=== PATIENT | female | born 1970 | race Two or more races ===

== ENCOUNTER 2024-10-23 10:34 | Inpatient (IN) ==
[2024-10-23] MEDS ORDERED: TUSSIONEX PENNKINETIC SUSP PO PRN (12:02)
[2024-10-23] MEDS ORDERED: NS 1/2 1,000 ML IV 1,000 ML IV ONE (12:14)
[2024-10-23] MEDS: NS 1/2 1,000 ML IV 1,000 ML IV SCH (12:26)
[2024-10-23] MEDS: ROBITUSSIN DM PO SCH (12:26)
[2024-10-23 12:38] LABS: BASOPHILS # (AUTO) 0.1 X10^3/uL (0.0-0.1); BASOPHILS % (AUTO) 0.6 % (0.2-1.0); EOSINOPHILS % (AUTO) 0.2 % (0.9-2.9); HEMATOCRIT 44.8 % (36.0-47.0); HEMOGLOBIN 14.5 g/dL (12.0-16.0); LYMPHOCYTES # (AUTO) 1.6 X10^3/uL (1.3-2.9); LYMPHOCYTES % (AUTO) 18.1 % (21.0-51.0); MEAN CORPUSCULAR HGB CONC 32.3 g/dL (33.0-35.0); MEAN CORPUSCULAR VOLUME 96.1 fL (80.0-100.0); MEAN PLATELET VOLUME 7.9 fL (7.4-11.0); MONOCYTES # (AUTO) 0.6 x10^3/uL (0.3-0.8); MONOCYTES % (AUTO) 7.1 % (0.0-13.0); NEUTROPHILS # (AUTO) 6.4 x10^3/uL (2.2-4.8); PLATELET COUNT 275 X10^3/uL (150.0-450.0); RED BLOOD COUNT 4.67 X10^6/uL (3.5-5.4); RED CELL DISTRIBUTION WIDTH 16.6 % (11.6-16.5); WHITE BLOOD COUNT 8.7 X10^3/uL (3.6-10.0)
[2024-10-23 13:07] LABS: ALANINE AMINOTRANSFERASE 13 Units/L (12-78); ALBUMIN 2.8 g/dL (3.4-5.0); ALKALINE PHOSPHATASE 130 Units/L (46-116); ASPARTATE AMINO TRANSFERASE 13 Units/L (15-37); BLOOD UREA NITROGEN 22 mg/dL (7-18); CALCIUM 8.6 mg/dL (8.5-10.1); CARBON DIOXIDE 34.4 mmol/L (21-32); CHLORIDE 100 mmol/L (98-107); COR CA(FOR HYPOALB) 9.6 mg/dL (8.5-10.1); CREATININE 0.92 mg/dL (0.55-1.02); GLUCOSE 95 mg/dL (65-99); POTASSIUM 4.3 mmol/L (3.5-5.1); SODIUM 138 mmol/L (136-145); TOTAL PROTEIN 6.8 g/dL (6.4-8.2); eGFR NON BLACK RACES > 60 (>60)
[2024-10-23 13:20] LABS: ABG BASE EXCESS 4.5 mmol/L (-2.0-2.0)
[2024-10-23 13:21] LABS: ABG ALLEN TEST POS; ABG HCO3 31.8 mmol/L (22-26)
--- NOTE | 2024-10-23 13:54 | EKG ---
Test Reason : PNEUMONIA Blood Pressure : */* mmHG Vent. Rate : 88 BPM Atrial Rate : 88 BPM P-R Int : 134 ms QRS Dur : 128 ms QT Int : 376 ms P-R-T Axes : 29 66 185 degrees QTc Int : 454 ms Normal sinus rhythm Nonspecific intraventricular block T wave abnormality, consider inferolateral ischemia Abnormal ECG No previous ECGs available Confirmed by Juve Watts MD ([id number]) on 10/24/2024 7:37:02 AM Referred By: Confirmed By: Juve Watts MD
--- NOTE | 2024-10-23 14:41 | RAD ---
EXAM:CHEST, 1 VIEWHISTORY:PNEUMONIA;COMPARISON:No relevant prior studies were available for comparison at the time of interpretation.TECHNIQUE:CHEST, 1 VIEWFINDINGS:Chest:Lines and tubes: NoneMediastinum: Cardiomegaly.Pulmonary vessels: Pulmonary vasculature is prominent.Lung espinal: No suspicious airspace opacity.Pleura: No effusion. No pneumothorax.Bones and soft tissues: No acute osseous or soft tissue abnormality.IMPRESSION:1. No acute cardiopulmonary abnormalityTHIS IS AN ELECTRONICALLY VERIFIED FINAL REPORT10/23/2024 2:37 PM - Electronically signed by Rory Maldonado MD
[2024-10-23] MEDS: NICOTINE PATCH TD SCH (16:00)
[2024-10-23] MEDS: DUONEB 0.5 MG/3 MG (3 mL) NEB SCH (16:48)
--- NOTE | 2024-10-23 17:24 | DR.H&P ---
H&P History & Physical for Day of: H&P Date: 10/23/24 Chief Complaint Chief Complaint: SOB, CCC, WEAKNESS History of Present Illness History of Present Illness: PT IS 54 HF, DIRECT ADMIT FROM DR SPIVEY OFFICE WITH SOB, HYPOXIA, CHEST CONGESTION AND WEAKNESS. PT REPORTS SHE WAS SEEN IN ER IN [place] ON 10/12. PT HAS NEEN TAKING PRESCIPTION MEDICATION. PT HAS PMH OF COPD, HTN, CHF AND OA. PTS O2 SAT 88% IN OFFICE. PT ADMITTED FOR TREATMENT OF ACUTE ILLNESS. Past Medical History Past Medical History: Coronary Artery Disease, Depression, Hypertension and NE Past Surgical History Surgical History: and Cholecystectomy Family History Family Medical History: Diabetes Mellitus, Cancer, NE, Coronary Artery Disease, Heart Failure, Sudden Cardiac and Hypertension Social History Does patient currently use any type of tobacco product: Yes Have you used tobacco products in the last 12 months: No Type of Tobacco Use: Cigarettes Alcohol Use: None Drug Use: None Medications Home Medications: Home Medications Medication Instructions Recorded Confirmed Type lisinopril 5 mg tablet 5 mg PO DAILY 03/06/20 10/23/24 History metoprolol tartrate 25 mg tablet 25 mg PO BID 03/06/20 10/23/24 History amitriptyline 10 mg tablet 10 mg PO QHS 01/27/22 10/23/24 History furosemide 20 mg tablet 20 mg PO DAILY PRN 01/27/22 10/23/24 History atorvastatin 20 mg tablet 20 mg PO QHS 04/27/24 10/23/24 History omeprazole 40 mg capsule,delayed 40 mg PO QDAY 04/27/24 10/23/24 History release potassium chloride 10 mEq 10 meq PO QDAY PRN 04/27/24 10/23/24 History tablet,extended release ropinirole 1 mg tablet 1 mg PO QDAY 04/27/24 10/23/24 History Allergies Allergies Allergy/AdvReac Type Severity Reaction Status Date / Time No Known Drug Allergies Allergy Verified 04/27/24 11:17 Labs 10/23/24 12:16 10/23/24 12:16 Labs: Laboratory WBC 8.7 X10^3/uL (3.6-10.0) 10/23/24 12:16 RBC 4.67 X10^6/uL (3.5-5.4) 10/23/24 12:16 Hgb 14.5 g/dL (12.0-16.0) 10/23/24 12:16 Hct 44.8 % (36.0-47.0) 10/23/24 12:16 MCV 96.1 fL (80.0-100.0) 10/23/24 12:16 MCH 31.0 pg (27.0-34.0) 10/23/24 12:16 MCHC 32.3 g/dL (33.0-35.0) L 10/23/24 12:16 RDW 16.6 % (11.6-16.5) H 10/23/24 12:16 Plt Count 275 X10^3/uL (150.0-450.0) 10/23/24 12:16 MPV 7.9 fL (7.4-11.0) 10/23/24 12:16 Neut % (Auto) 74.0 % (42.0-75.0) 10/23/24 12:16 Lymph % (Auto) 18.1 % (21.0-51.0) L 10/23/24 12:16 [place] % (Auto) 7.1 % (0.0-13.0) 10/23/24 12:16 Eos % (Auto) 0.2 % (0.9-2.9) L 10/23/24 12:16 Baso % (Auto) 0.6 % (0.2-1.0) 10/23/24 12:16 Neut # (Auto) 6.4 x10^3/uL (2.2-4.8) H 10/23/24 12:16 Lymph # (Auto) 1.6 X10^3/uL (1.3-2.9) 10/23/24 12:16 [place] # (Auto) 0.6 x10^3/uL (0.3-0.8) 10/23/24 12:16 Eos # (Auto) 0.0 x10^3/uL (0.0-0.2) 10/23/24 12:16 Baso # (Auto) 0.1 X10^3/uL (0.0-0.1) 10/23/24 12:16 Absolute Nucleated RBC 0.6 /100WBC 10/23/24 12:16 Sample Site Rrad 10/23/24 13:07 ABG pH 7.340 (7.35-7.45) L 10/23/24 13:07 ABG pCO2 59.0 mmHg (35.0-45.0) H* 10/23/24 13:07 ABG pO2 51.0 mmHg (80.0-100.0) L 10/23/24 13:07 ABG HCO3 31.8 mmol/L (22-26) H* 10/23/24 13:07 ABG O2 Saturation 83.0 % (90-100) L* 10/23/24 13:07 ABG Base Excess 4.5 mmol/L (-2.0-2.0) H 10/23/24 13:07 Lorenzo Test Pos 10/23/24 13:07 A-a Gradient 25.0 mmHg 10/23/24 13:07 FiO2 21.0 10/23/24 13:07 Blood Gas Comments Pt fede well elj cdn 10/23/24 13:07 Sodium 138 mmol/L (136-145) 10/23/24 12:16 Corrected Sodium TNP 10/23/24 12:16 Potassium 4.3 mmol/L (3.5-5.1) 10/23/24 12:16 Chloride 100 mmol/L (98-107) 10/23/24 12:16 Carbon Dioxide 34.4 mmol/L (21-32) H 10/23/24 12:16 BUN 22 mg/dL (7-18) H 10/23/24 12:16 Creatinine 0.92 mg/dL (0.55-1.02) 10/23/24 12:16 Est GFR (MDRD) Af Amer > 60 (>60) 10/23/24 12:16 Est GFR (MDRD) Non-Af > 60 (>60) 10/23/24 12:16 Glucose 95 mg/dL (65-99) 10/23/24 12:16 Calcium 8.6 mg/dL (8.5-10.1) 10/23/24 12:16 Corrected Calcium 9.6 mg/dL (8.5-10.1) 10/23/24 12:16 Total Bilirubin 0.50 mg/dL (0.2-1.0) 10/23/24 12:16 AST 13 Units/L (15-37) L 10/23/24 12:16 ALT 13 Units/L (12-78) 10/23/24 12:16 Alkaline Phosphatase 130 Units/L (46-116) H 10/23/24 12:16 Troponin I High Sens 22.1 ng/L (4.0-60.0) 10/23/24 12:16 Total Protein 6.8 g/dL (6.4-8.2) 10/23/24 12:16 Albumin 2.8 g/dL (3.4-5.0) L 10/23/24 12:16 Globulin 4.0 g/dL (2.5-4.5) 10/23/24 12:16 Albumin/Globulin Ratio 0.7 Ratio (1.1-2.1) L 10/23/24 12:16 Review of Systems Constitutional: Weakness Eyes: No Symptoms Reported ENT: No Symptoms Reported Respiratory: Cough, Shortness of Breath, SOB with Excertion and Sputum Cardiovascular: Edema Gastrointestinal: No Symptoms Reported Genitourinary: Frequency Musculoskeletal: Back Pain and Leg Pain Skin: No Symptoms Reported Neurological: Weakness Physical Exam Vital Signs: Vital Signs Temperature 98.7 F Temperature 98.3 F Temperature 98.3 F Pulse Rate [Brachial] 88 Pulse Rate [Brachial] 89 Respiratory Rate 18 Respiratory Rate 20 Respiratory Rate 19 Blood Pressure [Left Arm] 122/58 Blood Pressure [Left Arm] 114/55 Blood Pressure 104/74 O2 Sat by Pulse Oximetry 93 O2 Sat by Pulse Oximetry 83 O2 Sat by Pulse Oximetry 91 Oriented: Normal Eyes: Normal Ear: Normal Nose: Normal Throat: Normal Respiratory: Diminished Throughout Auscultation: Bowel Sounds: Normal Palpation: Normal Tenderness: Normal Skin: Tender Musculoskeletal: Swelling and Motor Deficit Psychiatric: Anxiety Mood Description: Anxious Speech Pattern: Clear and Appropriate Assessment/Plan (1) Pneumonia: Status: Acute Plan: ADMIT, CXR ON ADMISSION, CE AND EKG MONITORING BP AND BS CONTROL IV LASIX STRICT I&OS ADMISSION AND AM LABS SUPPLEMENTAL O2, DUO NEBS (2) CAD (coronary artery disease): Status: Acute (3) Hypertension: Status: Acute (4) CHF (congestive heart failure): Status: Acute
[2024-10-23] MEDS: TOPAMAX TAB 100 MG PO SCH (18:01)
[2024-10-23] MEDS: KLOR-CON 10 MEQ TAB PO SCH (18:01)
[2024-10-23] MEDS: ZOSYN VIAL 3.375 GRAMS 3.375 G in NS 100 ML IV 100 ML IV SCH (19:15)
[2024-10-23] MEDS: ELAVIL PO SCH (20:52)
[2024-10-23] MEDS: LOPRESSOR TAB 25 MG PO SCH (20:52)
[2024-10-23] MEDS: LIPITOR TAB 20 MG PO SCH (20:52)
[2024-10-23] MEDS: PULMICORT NEB TX 0.5 MG NEB SCH (21:18)
[2024-10-24 05:56] LABS: BASOPHILS # (AUTO) 0.1 X10^3/uL (0.0-0.1); BASOPHILS % (AUTO) 1.1 % (0.2-1.0); EOSINOPHILS # (AUTO) 0.1 x10^3/uL (0.0-0.2); EOSINOPHILS % (AUTO) 0.8 % (0.9-2.9); HEMOGLOBIN 14.5 g/dL (12.0-16.0); LYMPHOCYTES # (AUTO) 1.9 X10^3/uL (1.3-2.9); LYMPHOCYTES % (AUTO) 27.1 % (21.0-51.0); MEAN CORPUSCULAR HEMOGLOBIN 30.1 pg (27.0-34.0); MEAN CORPUSCULAR HGB CONC 31.4 g/dL (33.0-35.0); MEAN CORPUSCULAR VOLUME 95.8 fL (80.0-100.0); MONOCYTES # (AUTO) 0.5 x10^3/uL (0.3-0.8); MONOCYTES % (AUTO) 6.7 % (0.0-13.0); NEUTROPHILS # (AUTO) 4.5 x10^3/uL (2.2-4.8); NEUTROPHILS % (AUTO) 64.3 % (42.0-75.0); PLATELET COUNT 269 X10^3/uL (150.0-450.0); RED BLOOD COUNT 4.81 X10^6/uL (3.5-5.4); RED CELL DISTRIBUTION WIDTH 16.5 % (11.6-16.5)
[2024-10-24 06:15] LABS: ALANINE AMINOTRANSFERASE 11 Units/L (12-78); ALBUMIN 2.7 g/dL (3.4-5.0); ALKALINE PHOSPHATASE 125 Units/L (46-116); ASPARTATE AMINO TRANSFERASE 15 Units/L (15-37); BLOOD UREA NITROGEN 14 mg/dL (7-18); CALCIUM 8.2 mg/dL (8.5-10.1); CARBON DIOXIDE 33.2 mmol/L (21-32); CHLORIDE 101 mmol/L (98-107); COR CA(FOR HYPOALB) 9.2 mg/dL (8.5-10.1); COR NA(FOR HYPERGLY) 138 mmol/L (136-145); GLUCOSE 120 mg/dL (65-99); POTASSIUM 4.2 mmol/L (3.5-5.1); SODIUM 138 mmol/L (136-145); TOTAL PROTEIN 6.7 g/dL (6.4-8.2); eGFR NON BLACK RACES > 60 (>60)
[2024-10-24] MEDS: REQUIP PO SCH (08:40)
[2024-10-24] MEDS: PriLOSEC PO SCH (08:40)
[2024-10-24] MEDS: ZESTRIL TAB 5 MG PO SCH (08:40)
[2024-10-24] MEDS: SOLU-Medrol 125 MG VIAL IVP ONE (08:42)
[2024-10-24] MEDS: LASIX IVP SCH (08:42)
[2024-10-24] MEDS ORDERED: PATIENT'S HOME MEDICATION (Omeprazole 40 mg capsule,delayed release(DR/EC)) PO SCH (09:00)
[2024-10-24] MEDS ORDERED: TYLENOL 325 MG TAB PO PRN (10:28)
[2024-10-24] MEDS: ULTRAM PO PRN (10:52)
--- NOTE | 2024-10-24 11:00 | VAS ---
EXAM:[facility] Bilateral lower extremity DVT ultrasound examination with Doppler imaging.HISTORY:Edema bilateral lower extremities; BILAT LE EDEMA . Evaluate for evidence for DVT.Bilateral lower extremity pain and swelling.COMPARISON:NoneTECHNIQUE:Ultras ound of the deep venous vasculature of the bilateral lower extremities was performed.Color and spectral doppler imaging was utilized for the purposes of this examination as well.FINDINGS:The deep veins of both lower extremities are normal in size and configuration. No intraluminal filling defects are seen on grayscale or color flow imaging.The veins compress normally. Doppler waveforms are normal at rest and with augmentation.IMPRESSION:Negative bilateral lower extremity DVT ultrasound exam(s).THIS IS AN ELECTRONICALLY VERIFIED FINAL REPORT10/24/2024 10:56 AM - Electronically signed by Osmin Diane MD
[2024-10-25 05:22] VITALS: BMI 62.1
[2024-10-25 05:59] LABS: BASOPHILS # (AUTO) 0.1 X10^3/uL (0.0-0.1); BASOPHILS % (AUTO) 0.7 % (0.2-1.0); EOSINOPHILS % (AUTO) 0.1 % (0.9-2.9); HEMATOCRIT 44.8 % (36.0-47.0); HEMOGLOBIN 14.1 g/dL (12.0-16.0); LYMPHOCYTES # (AUTO) 1.9 X10^3/uL (1.3-2.9); LYMPHOCYTES % (AUTO) 23.8 % (21.0-51.0); MEAN CORPUSCULAR HEMOGLOBIN 30.2 pg (27.0-34.0); MEAN CORPUSCULAR HGB CONC 31.5 g/dL (33.0-35.0); MEAN PLATELET VOLUME 7.8 fL (7.4-11.0); MONOCYTES # (AUTO) 0.7 x10^3/uL (0.3-0.8); MONOCYTES % (AUTO) 8.2 % (0.0-13.0); NEUTROPHILS # (AUTO) 5.4 x10^3/uL (2.2-4.8); NEUTROPHILS % (AUTO) 67.2 % (42.0-75.0); PLATELET COUNT 283 X10^3/uL (150.0-450.0); RED BLOOD COUNT 4.67 X10^6/uL (3.5-5.4); RED CELL DISTRIBUTION WIDTH 16.2 % (11.6-16.5); WHITE BLOOD COUNT 8.1 X10^3/uL (3.6-10.0)
[2024-10-25 06:11] LABS: ALANINE AMINOTRANSFERASE 11 Units/L (12-78); ALBUMIN 2.6 g/dL (3.4-5.0); ALKALINE PHOSPHATASE 114 Units/L (46-116); ASPARTATE AMINO TRANSFERASE 12 Units/L (15-37); BLOOD UREA NITROGEN 19 mg/dL (7-18); CARBON DIOXIDE 36.4 mmol/L (21-32); CHLORIDE 102 mmol/L (98-107); COR CA(FOR HYPOALB) 9.1 mg/dL (8.5-10.1); COR NA(FOR HYPERGLY) 140 mmol/L (136-145); CREATININE 0.92 mg/dL (0.55-1.02); GLUCOSE 118 mg/dL (65-99); POTASSIUM 4.1 mmol/L (3.5-5.1); SODIUM 140 mmol/L (136-145); TOTAL PROTEIN 6.5 g/dL (6.4-8.2); eGFR NON BLACK RACES > 60 (>60)
[2024-10-25] MEDS: NS 250 ML IV 25 ML IV PRN (06:53)
[2024-10-25] MEDS: NS 1/2 1,000 ML IV 1,000 ML IV ONE (07:37)
--- NOTE | 2024-10-25 07:48 | RAD ---
EXAMINATION:CHEST, 1 VIEWHISTORY:PNEUMONIA ; DC, HTN, SLEEP APNEA, GERD SX: MARNIE, CSECTION .COMPARISON STUDY:Chest x-ray 10/24/2019TECHNIQUE:Single portable AP view chestFINDINGS:Moderate cardiac silhouette enlargement. Normal pulmonary vascular pattern. Lungs are expanded. Bones are intact.IMPRESSION:Nonspecific moderate cardiac silhouette enlargement. Recommend follow-up cardiac ultrasound.THIS IS AN ELECTRONICALLY VERIFIED FINAL REPORT10/25/2024 7:45 AM - Electronically signed by Molly Causey MD
[2024-10-25] MEDS: NORCO 5/325 MG TAB PO PRN (09:19)
[2024-10-25] MEDS: LOVENOX INJ 40 MG SYR SC SCH (09:23)
[2024-10-26 06:57] LABS: BASOPHILS # (AUTO) 0.1 X10^3/uL (0.0-0.1); BASOPHILS % (AUTO) 1.3 % (0.2-1.0); EOSINOPHILS % (AUTO) 0.4 % (0.9-2.9); HEMATOCRIT 45.3 % (36.0-47.0); HEMOGLOBIN 14.4 g/dL (12.0-16.0); LYMPHOCYTES # (AUTO) 1.7 X10^3/uL (1.3-2.9); LYMPHOCYTES % (AUTO) 21.9 % (21.0-51.0); MEAN CORPUSCULAR HEMOGLOBIN 30.4 pg (27.0-34.0); MEAN CORPUSCULAR HGB CONC 31.7 g/dL (33.0-35.0); MEAN CORPUSCULAR VOLUME 95.9 fL (80.0-100.0); MONOCYTES # (AUTO) 0.5 x10^3/uL (0.3-0.8); MONOCYTES % (AUTO) 6.5 % (0.0-13.0); NEUTROPHILS # (AUTO) 5.5 x10^3/uL (2.2-4.8); NEUTROPHILS % (AUTO) 69.9 % (42.0-75.0); PLATELET COUNT 243 X10^3/uL (150.0-450.0); RED BLOOD COUNT 4.72 X10^6/uL (3.5-5.4); RED CELL DISTRIBUTION WIDTH 16.5 % (11.6-16.5); WHITE BLOOD COUNT 7.9 X10^3/uL (3.6-10.0)
[2024-10-26 07:17] LABS: ALANINE AMINOTRANSFERASE 11 Units/L (12-78); ALBUMIN 2.6 g/dL (3.4-5.0); ALKALINE PHOSPHATASE 105 Units/L (46-116); ASPARTATE AMINO TRANSFERASE 21 Units/L (15-37); BLOOD UREA NITROGEN 15 mg/dL (7-18); CALCIUM 8.2 mg/dL (8.5-10.1); CARBON DIOXIDE 37.9 mmol/L (21-32); CHLORIDE 102 mmol/L (98-107); COR CA(FOR HYPOALB) 9.3 mg/dL (8.5-10.1); CREATININE 0.77 mg/dL (0.55-1.02); GLUCOSE 96 mg/dL (65-99); POTASSIUM 4.3 mmol/L (3.5-5.1); SODIUM 141 mmol/L (136-145); TOTAL PROTEIN 6.4 g/dL (6.4-8.2); eGFR NON BLACK RACES > 60 (>60)
[2024-10-26] MEDS ORDERED: NS 1/2 1,000 ML IV 1,000 ML IV ONE (20:27)
[2024-10-27] MEDS: NORCO 5/325 MG TAB PO PRN (01:22)
[2024-10-27 06:45] LABS: BASOPHILS # (AUTO) 0.1 X10^3/uL (0.0-0.1); BASOPHILS % (AUTO) 1.6 % (0.2-1.0); EOSINOPHILS # (AUTO) 0.1 x10^3/uL (0.0-0.2); EOSINOPHILS % (AUTO) 1.1 % (0.9-2.9); HEMATOCRIT 43.7 % (36.0-47.0); HEMOGLOBIN 13.9 g/dL (12.0-16.0); LYMPHOCYTES # (AUTO) 1.7 X10^3/uL (1.3-2.9); LYMPHOCYTES % (AUTO) 26.3 % (21.0-51.0); MEAN CORPUSCULAR HEMOGLOBIN 30.5 pg (27.0-34.0); MEAN CORPUSCULAR HGB CONC 31.9 g/dL (33.0-35.0); MEAN CORPUSCULAR VOLUME 95.5 fL (80.0-100.0); MEAN PLATELET VOLUME 8.1 fL (7.4-11.0); MONOCYTES # (AUTO) 0.4 x10^3/uL (0.3-0.8); MONOCYTES % (AUTO) 6.6 % (0.0-13.0); NEUTROPHILS # (AUTO) 4.2 x10^3/uL (2.2-4.8); NEUTROPHILS % (AUTO) 64.4 % (42.0-75.0); PLATELET COUNT 210 X10^3/uL (150.0-450.0); RED BLOOD COUNT 4.57 X10^6/uL (3.5-5.4); RED CELL DISTRIBUTION WIDTH 16.8 % (11.6-16.5); WHITE BLOOD COUNT 6.5 X10^3/uL (3.6-10.0)
[2024-10-27 06:59] LABS: ALANINE AMINOTRANSFERASE 8 Units/L (12-78); ALBUMIN 2.4 g/dL (3.4-5.0); ALKALINE PHOSPHATASE 98 Units/L (46-116); ASPARTATE AMINO TRANSFERASE 15 Units/L (15-37); BLOOD UREA NITROGEN 11 mg/dL (7-18); CARBON DIOXIDE 38.8 mmol/L (21-32); CHLORIDE 102 mmol/L (98-107); COR CA(FOR HYPOALB) 9.3 mg/dL (8.5-10.1); CREATININE 0.65 mg/dL (0.55-1.02); GLUCOSE 88 mg/dL (65-99); POTASSIUM 3.3 mmol/L (3.5-5.1); SODIUM 141 mmol/L (136-145); TOTAL PROTEIN 6.1 g/dL (6.4-8.2); eGFR NON BLACK RACES > 60 (>60)
--- NOTE | 2024-10-27 13:02 | PCM.PROG ---
Progress Note Progress Note for Day of Date of Exam: 10/27/24 Subjective Subjective: Patient seen at bedside, no acute events overnight. She is currently admitted for pneumonia and CHF exacerbation. She remains on IV antibiotics and IV Lasix. She is currently on 3 L oxygen. She does not use oxygen at home but was supposed to be set up for CPAP or trilogy. She would like to try BiPAP at night. Labs/imaging reviewed: -WBC 6.5 hemoglobin 13.9 potassium 3.3 creatinine 0.65 -AIT negative, sputum culture normal christie -Echocardiogram 55 to 60%, grade 2 diastolic dysfunction Plan: Wean O2 as tolerated, continue IV Lasix, strict I's and O's, daily weight. Continue Zosyn. Follow pending cultures. Continue home medications. Continue nebs, Pulmicort and IS. Replace electrolytes as needed. BiPAP nightly as needed. PT/OT as tolerated. Monitor a.m. labs and imaging. Past Medical Family Social History Allergies: Allergies No Known Drug Allergies Allergy (Verified 04/27/24 11:17) Vital Signs and I&O's Vital Signs: Vital Signs Pulse Rate 81 Respiratory Rate 20 O2 Sat by Pulse Oximetry 92 Intake and Output: Intake & Output 10/24/24 10/25/24 10/26/24 10/27/24 23:59 23:59 23:59 23:59 Intake Total 2734 / 2734 2869 / 2869 3655 / 3655 452 / 452 Output Total 4100 / 4100 700 / 700 3600 / 3600 Balance -1366 / -1366 2169 / 2169 55 / 55 452 / 452 Physical Exam Oriented: Normal Eyes: Normal Ear: Normal Nose: Normal Throat: Normal Respiratory: Generalized and Diminished Cardiovascular: Normal and Edema Auscultation: Bowel Sounds: Normal Palpation: Normal Tenderness: Normal Skin: Tender Musculoskeletal: Swelling and Motor Deficit Psychiatric: Normal Mood Description: Calm Speech Pattern: Clear and Appropriate Laboratory and Diagnostics 10/27/24 05:25 10/27/24 05:25 Labs: 10/25/24 10:55 Sputum - Expectorated Sputum Sputum Culture - Final 10/25/24 10:55 Sputum - Expectorated Sputum - Final 10/23/24 12:23 Blood Blood Culture - Preliminary 10/23/24 12:16 Blood Blood Culture - Preliminary Laboratory WBC 6.5 X10^3/uL (3.6-10.0) 10/27/24 05:25 RBC 4.57 X10^6/uL (3.5-5.4) 10/27/24 05:25 Hgb 13.9 g/dL (12.0-16.0) 10/27/24 05:25 Hct 43.7 % (36.0-47.0) 10/27/24 05:25 MCV 95.5 fL (80.0-100.0) 10/27/24 05:25 MCH 30.5 pg (27.0-34.0) 10/27/24 05:25 MCHC 31.9 g/dL (33.0-35.0) L 10/27/24 05:25 RDW 16.8 % (11.6-16.5) H 10/27/24 05:25 Plt Count 210 X10^3/uL (150.0-450.0) 10/27/24 05:25 MPV 8.1 fL (7.4-11.0) 10/27/24 05:25 Neut % (Auto) 64.4 % (42.0-75.0) 10/27/24 05:25 Lymph % (Auto) 26.3 % (21.0-51.0) 10/27/24 05:25 [place] % (Auto) 6.6 % (0.0-13.0) 10/27/24 05:25 Eos % (Auto) 1.1 % (0.9-2.9) 10/27/24 05:25 Baso % (Auto) 1.6 % (0.2-1.0) H 10/27/24 05:25 Neut # (Auto) 4.2 x10^3/uL (2.2-4.8) 10/27/24 05:25 Lymph # (Auto) 1.7 X10^3/uL (1.3-2.9) 10/27/24 05:25 [place] # (Auto) 0.4 x10^3/uL (0.3-0.8) 10/27/24 05:25 Eos # (Auto) 0.1 x10^3/uL (0.0-0.2) 10/27/24 05:25 Baso # (Auto) 0.1 X10^3/uL (0.0-0.1) 10/27/24 05:25 Absolute Nucleated RBC 0.5 /100WBC 10/27/24 05:25 Sample Site Rrad 10/23/24 13:07 ABG pH 7.340 (7.35-7.45) L 10/23/24 13:07 ABG pCO2 59.0 mmHg (35.0-45.0) H* 10/23/24 13:07 ABG pO2 51.0 mmHg (80.0-100.0) L 10/23/24 13:07 ABG HCO3 31.8 mmol/L (22-26) H* 10/23/24 13:07 ABG O2 Saturation 83.0 % (90-100) L* 10/23/24 13:07 ABG Base Excess 4.5 mmol/L (-2.0-2.0) H 10/23/24 13:07 Lorenzo Test Pos 10/23/24 13:07 A-a Gradient 25.0 mmHg 10/23/24 13:07 FiO2 21.0 10/23/24 13:07 Blood Gas Comments Pt fede well elj cdn 10/23/24 13:07 Sodium 141 mmol/L (136-145) 10/27/24 05:25 Corrected Sodium TNP 10/27/24 05:25 Potassium 3.3 mmol/L (3.5-5.1) L 10/27/24 05:25 Chloride 102 mmol/L (98-107) 10/27/24 05:25 Carbon Dioxide 38.8 mmol/L (21-32) H 10/27/24 05:25 BUN 11 mg/dL (7-18) 10/27/24 05:25 Creatinine 0.65 mg/dL (0.55-1.02) 10/27/24 05:25 Est GFR (MDRD) Af Amer > 60 (>60) 10/27/24 05:25 Est GFR (MDRD) Non-Af > 60 (>60) 10/27/24 05:25 Glucose 88 mg/dL (65-99) 10/27/24 05:25 Calcium 8.0 mg/dL (8.5-10.1) L 10/27/24 05:25 Corrected Calcium 9.3 mg/dL (8.5-10.1) 10/27/24 05:25 Total Bilirubin 0.60 mg/dL (0.2-1.0) 10/27/24 05:25 AST 15 Units/L (15-37) 10/27/24 05:25 ALT 8 Units/L (12-78) L 10/27/24 05:25 Alkaline Phosphatase 98 Units/L (46-116) 10/27/24 05:25 Troponin I High Sens 26.3 ng/L (4.0-60.0) 10/24/24 00:20 B-Natriuretic Peptide 131 pg/mL (0-79) H 10/26/24 06:12 Total Protein 6.1 g/dL (6.4-8.2) L 10/27/24 05:25 Albumin 2.4 g/dL (3.4-5.0) L 10/27/24 05:25 Globulin 3.7 g/dL (2.5-4.5) 10/27/24 05:25 Albumin/Globulin Ratio 0.6 Ratio (1.1-2.1) L 10/27/24 05:25 Resp Viral Panel (PCR) See scanned report 10/23/24 13:00 Plan (1) CHF (congestive heart failure): Status: Acute (2) Pneumonia: Status: Acute (3) CAD (coronary artery disease): Status: Chronic (4) Hypertension: Status: Chronic (5) ENE (obstructive sleep apnea): Status: Chronic (6) Acute respiratory failure: Status: Acute Qualifiers: Respiratory failure complication: hypoxia and hypercapnia Qualified Code(s): J96.01 - Acute respiratory failure with hypoxia; J96.02 - Acute respiratory failure with hypercapnia
[2024-10-27] MEDS: REQUIP PO SCH (21:18)
[2024-10-28 06:56] LABS: BASOPHILS # (AUTO) 0.1 X10^3/uL (0.0-0.1); BASOPHILS % (AUTO) 1.6 % (0.2-1.0); EOSINOPHILS # (AUTO) 0.1 x10^3/uL (0.0-0.2); EOSINOPHILS % (AUTO) 1.5 % (0.9-2.9); HEMATOCRIT 46.5 % (36.0-47.0); HEMOGLOBIN 14.8 g/dL (12.0-16.0); LYMPHOCYTES # (AUTO) 1.4 X10^3/uL (1.3-2.9); MEAN CORPUSCULAR HEMOGLOBIN 30.4 pg (27.0-34.0); MEAN CORPUSCULAR HGB CONC 31.8 g/dL (33.0-35.0); MEAN CORPUSCULAR VOLUME 95.7 fL (80.0-100.0); MONOCYTES # (AUTO) 0.4 x10^3/uL (0.3-0.8); MONOCYTES % (AUTO) 5.3 % (0.0-13.0); NEUTROPHILS # (AUTO) 4.7 x10^3/uL (2.2-4.8); NEUTROPHILS % (AUTO) 70.6 % (42.0-75.0); PLATELET COUNT 223 X10^3/uL (150.0-450.0); RED BLOOD COUNT 4.86 X10^6/uL (3.5-5.4); RED CELL DISTRIBUTION WIDTH 16.5 % (11.6-16.5); WHITE BLOOD COUNT 6.7 X10^3/uL (3.6-10.0)
[2024-10-28 07:11] LABS: ALANINE AMINOTRANSFERASE 13 Units/L (12-78); ALBUMIN 2.8 g/dL (3.4-5.0); ALKALINE PHOSPHATASE 109 Units/L (46-116); ASPARTATE AMINO TRANSFERASE 18 Units/L (15-37); BLOOD UREA NITROGEN 12 mg/dL (7-18); CALCIUM 8.5 mg/dL (8.5-10.1); CARBON DIOXIDE 36.7 mmol/L (21-32); CHLORIDE 99 mmol/L (98-107); COR CA(FOR HYPOALB) 9.5 mg/dL (8.5-10.1); CREATININE 0.71 mg/dL (0.55-1.02); GLUCOSE 93 mg/dL (65-99); MAGNESIUM 1.7 mg/dL (2.0-2.9); POTASSIUM 3.5 mmol/L (3.5-5.1); SODIUM 141 mmol/L (136-145); eGFR NON BLACK RACES > 60 (>60)
[2024-10-28] MEDS: K-DUR TAB 20 MEQ PO SCH (09:54)
[2024-10-28] MEDS: MAG-OX TAB PO SCH ×2 (09:54→12:17)
[2024-10-28] MEDS: CONSULT PHARMACY - POTASSIUM & MAGNESIUM XX SCH (10:48)
--- NOTE | 2024-10-28 11:56 | PCM.PROG ---
Progress Note Progress Note for Day of Date of Exam: 10/28/24 Subjective Subjective: Patient seen at bedside, no acute events overnight. She is currently admitted for pneumonia and CHF exacerbation. She remains on IV antibiotics and IV Lasix. She is currently on 3 L oxygen. She does not use oxygen at home but was supposed to be set up for CPAP or trilogy. AIT and sputum cx have been negative. She has been ambulating to the bathroom. Her leg edema is slowly improving. Her BP was slightly low this morning. Labs/imaging reviewed: -WBC 6.7 hemoglobin 14.8 potassium 3.3 creatinine 0.71 -AIT negative, sputum culture normal christie -Echocardiogram 55 to 60%, grade 2 diastolic dysfunction Plan: Wean O2 as tolerated, continue IV Lasix, strict I's and O's, daily weight. DC Zosyn. Continue home medications. Lisinopril held, monitor BP. Continue nebs, Pulmicort and IS. Replace electrolytes as needed. BiPAP nightly as needed. PT/OT as tolerated. Monitor a.m. labs and imaging. Past Medical Family Social History Allergies: Allergies No Known Drug Allergies Allergy (Verified 04/27/24 11:17) Vital Signs and I&O's Vital Signs: Vital Signs Pulse Rate 79 Respiratory Rate 18 O2 Sat by Pulse Oximetry 94 Intake and Output: Intake & Output 10/25/24 10/26/24 10/27/24 10/29/24 23:59 23:59 23:59 00:59 Intake Total 2869 / 2869 3655 / 3655 2572 / 2572 200 / 200 Output Total 700 / 700 3600 / 3600 3400 / 3400 Balance 2169 / 2169 55 / 55 -828 / -828 200 / 200 Physical Exam Oriented: Normal Eyes: Normal Ear: Normal Nose: Normal Throat: Normal Respiratory: Generalized and Diminished Cardiovascular: Normal and Edema Auscultation: Bowel Sounds: Normal Palpation: Normal Tenderness: Normal Skin: Tender Musculoskeletal: Swelling and Motor Deficit Psychiatric: Normal Mood Description: Calm Affect: Normal Speech Pattern: Clear and Appropriate Laboratory and Diagnostics 10/28/24 05:06 10/28/24 05:06 Labs: 10/25/24 10:55 Sputum - Expectorated Sputum Sputum Culture - Final 10/25/24 10:55 Sputum - Expectorated Sputum - Final 10/23/24 12:23 Blood Blood Culture - Preliminary 10/23/24 12:16 Blood Blood Culture - Preliminary Laboratory WBC 6.7 X10^3/uL (3.6-10.0) 10/28/24 05:06 RBC 4.86 X10^6/uL (3.5-5.4) 10/28/24 05:06 Hgb 14.8 g/dL (12.0-16.0) 10/28/24 05:06 Hct 46.5 % (36.0-47.0) 10/28/24 05:06 MCV 95.7 fL (80.0-100.0) 10/28/24 05:06 MCH 30.4 pg (27.0-34.0) 10/28/24 05:06 MCHC 31.8 g/dL (33.0-35.0) L 10/28/24 05:06 RDW 16.5 % (11.6-16.5) 10/28/24 05:06 Plt Count 223 X10^3/uL (150.0-450.0) 10/28/24 05:06 MPV 8.0 fL (7.4-11.0) 10/28/24 05:06 Neut % (Auto) 70.6 % (42.0-75.0) 10/28/24 05:06 Lymph % (Auto) 21.0 % (21.0-51.0) 10/28/24 05:06 [place] % (Auto) 5.3 % (0.0-13.0) 10/28/24 05:06 Eos % (Auto) 1.5 % (0.9-2.9) 10/28/24 05:06 Baso % (Auto) 1.6 % (0.2-1.0) H 10/28/24 05:06 Neut # (Auto) 4.7 x10^3/uL (2.2-4.8) 10/28/24 05:06 Lymph # (Auto) 1.4 X10^3/uL (1.3-2.9) 10/28/24 05:06 [place] # (Auto) 0.4 x10^3/uL (0.3-0.8) 10/28/24 05:06 Eos # (Auto) 0.1 x10^3/uL (0.0-0.2) 10/28/24 05:06 Baso # (Auto) 0.1 X10^3/uL (0.0-0.1) 10/28/24 05:06 Absolute Nucleated RBC 0.1 /100WBC 10/28/24 05:06 Sample Site Rrad 10/23/24 13:07 ABG pH 7.340 (7.35-7.45) L 10/23/24 13:07 ABG pCO2 59.0 mmHg (35.0-45.0) H* 10/23/24 13:07 ABG pO2 51.0 mmHg (80.0-100.0) L 10/23/24 13:07 ABG HCO3 31.8 mmol/L (22-26) H* 10/23/24 13:07 ABG O2 Saturation 83.0 % (90-100) L* 10/23/24 13:07 ABG Base Excess 4.5 mmol/L (-2.0-2.0) H 10/23/24 13:07 Lorenzo Test Pos 10/23/24 13:07 A-a Gradient 25.0 mmHg 10/23/24 13:07 FiO2 21.0 10/23/24 13:07 Blood Gas Comments Pt fede well elj cdn 10/23/24 13:07 Sodium 141 mmol/L (136-145) 10/28/24 05:06 Corrected Sodium TNP 10/28/24 05:06 Potassium 3.5 mmol/L (3.5-5.1) 10/28/24 05:06 Chloride 99 mmol/L (98-107) 10/28/24 05:06 Carbon Dioxide 36.7 mmol/L (21-32) H 10/28/24 05:06 BUN 12 mg/dL (7-18) 10/28/24 05:06 Creatinine 0.71 mg/dL (0.55-1.02) 10/28/24 05:06 Est GFR (MDRD) Af Amer > 60 (>60) 10/28/24 05:06 Est GFR (MDRD) Non-Af > 60 (>60) 10/28/24 05:06 Glucose 93 mg/dL (65-99) 10/28/24 05:06 Calcium 8.5 mg/dL (8.5-10.1) 10/28/24 05:06 Corrected Calcium 9.5 mg/dL (8.5-10.1) 10/28/24 05:06 Magnesium 1.7 mg/dL (2.0-2.9) L 10/28/24 05:06 Total Bilirubin 0.60 mg/dL (0.2-1.0) 10/28/24 05:06 AST 18 Units/L (15-37) 10/28/24 05:06 ALT 13 Units/L (12-78) 10/28/24 05:06 Alkaline Phosphatase 109 Units/L (46-116) 10/28/24 05:06 Troponin I High Sens 26.3 ng/L (4.0-60.0) 10/24/24 00:20 B-Natriuretic Peptide 131 pg/mL (0-79) H 10/26/24 06:12 Total Protein 7.0 g/dL (6.4-8.2) 10/28/24 05:06 Albumin 2.8 g/dL (3.4-5.0) L 10/28/24 05:06 Globulin 4.2 g/dL (2.5-4.5) 10/28/24 05:06 Albumin/Globulin Ratio 0.7 Ratio (1.1-2.1) L 10/28/24 05:06 Resp Viral Panel (PCR) See scanned report 10/23/24 13:00 Plan (1) CHF (congestive heart failure): Status: Acute (2) Acute respiratory failure: Status: Acute Qualifiers: Respiratory failure complication: hypoxia and hypercapnia Qualified Code(s): J96.01 - Acute respiratory failure with hypoxia; J96.02 - Acute respiratory failure with hypercapnia (3) Hypomagnesemia: Status: Acute (4) CAD (coronary artery disease): Status: Chronic (5) Hypertension: Status: Chronic (6) ENE (obstructive sleep apnea): Status: Chronic
[2024-10-29] MEDS: NS 1/2 1,000 ML IV 1,000 ML IV ONE (05:35)
[2024-10-29 05:53] LABS: BASOPHILS % (AUTO) 0.5 % (0.2-1.0); EOSINOPHILS # (AUTO) 0.1 x10^3/uL (0.0-0.2); EOSINOPHILS % (AUTO) 1.4 % (0.9-2.9); HEMATOCRIT 45.6 % (36.0-47.0); HEMOGLOBIN 14.5 g/dL (12.0-16.0); LYMPHOCYTES # (AUTO) 1.3 X10^3/uL (1.3-2.9); LYMPHOCYTES % (AUTO) 19.6 % (21.0-51.0); MEAN CORPUSCULAR HEMOGLOBIN 30.5 pg (27.0-34.0); MEAN CORPUSCULAR HGB CONC 31.8 g/dL (33.0-35.0); MEAN CORPUSCULAR VOLUME 95.8 fL (80.0-100.0); MEAN PLATELET VOLUME 7.9 fL (7.4-11.0); MONOCYTES # (AUTO) 0.5 x10^3/uL (0.3-0.8); NEUTROPHILS # (AUTO) 4.8 x10^3/uL (2.2-4.8); NEUTROPHILS % (AUTO) 71.5 % (42.0-75.0); PLATELET COUNT 201 X10^3/uL (150.0-450.0); RED BLOOD COUNT 4.76 X10^6/uL (3.5-5.4); RED CELL DISTRIBUTION WIDTH 16.7 % (11.6-16.5); WHITE BLOOD COUNT 6.7 X10^3/uL (3.6-10.0)
[2024-10-29 06:28] LABS: ALANINE AMINOTRANSFERASE 16 Units/L (12-78); ALBUMIN 2.6 g/dL (3.4-5.0); ALKALINE PHOSPHATASE 102 Units/L (46-116); ASPARTATE AMINO TRANSFERASE 23 Units/L (15-37); BLOOD UREA NITROGEN 9 mg/dL (7-18); CALCIUM 8.6 mg/dL (8.5-10.1); CARBON DIOXIDE 36.5 mmol/L (21-32); CHLORIDE 101 mmol/L (98-107); COR CA(FOR HYPOALB) 9.7 mg/dL (8.5-10.1); COR NA(FOR HYPERGLY) 140 mmol/L (136-145); CREATININE 0.56 mg/dL (0.55-1.02); GLUCOSE 117 mg/dL (65-99); MAGNESIUM 1.8 mg/dL (2.0-2.9); POTASSIUM 3.9 mmol/L (3.5-5.1); SODIUM 140 mmol/L (136-145); TOTAL PROTEIN 6.7 g/dL (6.4-8.2); eGFR NON BLACK RACES > 60 (>60)
[2024-10-29 10:03] LABS: ABG BASE EXCESS 7.7 mmol/L (-2.0-2.0)
[2024-10-29 10:04] LABS: ABG ALLEN TEST Pos; ABG HCO3 35.6 mmol/L (22-26)
--- NOTE | 2024-10-29 11:59 | RAD ---
EXAM:CHEST, 1 VIEWHISTORY:HYPOXIA, PNEUMONIA;COMPARISON:10/25/2024FINDINGS: The trachea is midline. The cardiac silhouette is enlarged with a tortuous thoracic aorta . The lungs are clear without focal infiltrate or effusion. The bony thorax is unremarkable.IMPRESSION:No acute cardiopulmonary disease.THIS IS AN ELECTRONICALLY VERIFIED FINAL REPORT10/29/2024 11:56 AM - Electronically signed by Doc Witt MD
[2024-10-30 05:42] LABS: BASOPHILS # (AUTO) 0.1 X10^3/uL (0.0-0.1); BASOPHILS % (AUTO) 0.8 % (0.2-1.0); EOSINOPHILS # (AUTO) 0.1 x10^3/uL (0.0-0.2); EOSINOPHILS % (AUTO) 1.5 % (0.9-2.9); HEMATOCRIT 42.5 % (36.0-47.0); HEMOGLOBIN 13.4 g/dL (12.0-16.0); LYMPHOCYTES # (AUTO) 1.2 X10^3/uL (1.3-2.9); MEAN CORPUSCULAR HEMOGLOBIN 30.2 pg (27.0-34.0); MEAN CORPUSCULAR HGB CONC 31.6 g/dL (33.0-35.0); MEAN CORPUSCULAR VOLUME 95.6 fL (80.0-100.0); MEAN PLATELET VOLUME 8.2 fL (7.4-11.0); MONOCYTES # (AUTO) 0.6 x10^3/uL (0.3-0.8); MONOCYTES % (AUTO) 9.5 % (0.0-13.0); NEUTROPHILS # (AUTO) 4.2 x10^3/uL (2.2-4.8); NEUTROPHILS % (AUTO) 68.2 % (42.0-75.0); PLATELET COUNT 192 X10^3/uL (150.0-450.0); RED BLOOD COUNT 4.45 X10^6/uL (3.5-5.4); RED CELL DISTRIBUTION WIDTH 16.2 % (11.6-16.5); WHITE BLOOD COUNT 6.2 X10^3/uL (3.6-10.0)
[2024-10-30 06:04] LABS: ALANINE AMINOTRANSFERASE 19 Units/L (12-78); ALBUMIN 2.2 g/dL (3.4-5.0); ALKALINE PHOSPHATASE 94 Units/L (46-116); ASPARTATE AMINO TRANSFERASE 29 Units/L (15-37); BLOOD UREA NITROGEN 9 mg/dL (7-18); CALCIUM 8.4 mg/dL (8.5-10.1); CARBON DIOXIDE 36.3 mmol/L (21-32); CHLORIDE 102 mmol/L (98-107); COR CA(FOR HYPOALB) 9.8 mg/dL (8.5-10.1); COR NA(FOR HYPERGLY) 140 mmol/L (136-145); CREATININE 0.49 mg/dL (0.55-1.02); GLUCOSE 121 mg/dL (65-99); MAGNESIUM 1.8 mg/dL (2.0-2.9); POTASSIUM 3.6 mmol/L (3.5-5.1); SODIUM 139 mmol/L (136-145); TOTAL PROTEIN 6.1 g/dL (6.4-8.2); eGFR NON BLACK RACES > 60 (>60)
[2024-10-30] MEDS: SOLU-Medrol 125 MG VIAL IVP ONE (09:06)
[2024-10-30 09:38] VITALS: O2SAT 96
[2024-10-30 19:33] VITALS: BP 122/64; PULSE 84; RESP 20; TEMP 98
== END 2024-10-30 15:00 | disposition home or self-care (01) | DRG 193 ==
LOC: OBS → OBSVTOIN 11:22 → MED/SURG 12:01
PROVIDERS: ADMIT Internal Medicine; ATTEND Internal Medicine
DX: M19.90 Unspecified osteoarthritis, unspecified site; R94.31 Abnormal electrocardiogram [ECG] [EKG]; G47.33 Obstructive sleep apnea (adult) (pediatric); R53.1 Weakness; E83.42 Hypomagnesemia; Z59.41 Food insecurity; Z72.0 Tobacco use; I50.9 Heart failure, unspecified; Z59.86 Financial insecurity; J96.02 Acute respiratory failure with hypercapnia; R60.0 Localized edema; J18.8 Other pneumonia, unspecified organism; I25.10 Atherosclerotic heart disease of native coronary artery without angina pectoris; J96.01 Acute respiratory failure with hypoxia; Z74.1 Need for assistance with personal care; J44.1 Chronic obstructive pulmonary disease with (acute) exacerbation; R26.89 Other abnormalities of gait and mobility; I11.0 Hypertensive heart disease with heart failure